=== PATIENT | male | born 1960 ===

== ENCOUNTER 2021-12-31 10:00 | Inpatient (IN) | payer OTHER ==
[~2021-12-31] VITALS: Ht 177.8 cm; Wt 80.9 kg
[2022-01-04] MEDS ORDERED: COLACE100 MG PO (07:33)
[2022-01-04] MEDS ORDERED: BACTRIM DS TAB1 EACH PO (07:34)
[2022-01-04] MEDS ORDERED: NEURONTIN800 MG PO (07:34)
[2022-01-04] MEDS ORDERED: PERCOCET 5-3251 EACH PO (07:34)
[2022-01-04] MEDS ORDERED: MEDROLPACK PO (07:34)
== END 2022-01-05 15:24 | disposition home or self-care (01) | DRG 455 ==
LOC: O/R 01-04 05:15 → PED 01-04 05:15 → SURH 01-04 07:00 → PED 01-04 11:29
PROVIDERS: ADMIT Orthopaedic Surgery Orthopaedic Surgery of the Spine; ATTEND Orthopaedic Surgery Orthopaedic Surgery of the Spine
PROC: 0SG0071 Fusion of Lumbar Vertebral Joint with Autologous Tissue Substitute, Posterior Approach, Posterior Column, Open Approach (ICD-10-PCS; 2022-01-04)
PROC: 0QB20ZZ Excision of Right Pelvic Bone, Open Approach (ICD-10-PCS; 2022-01-04)
PROC: 0SB20ZZ Excision of Lumbar Vertebral Disc, Open Approach (ICD-10-PCS; 2022-01-04)
PROC: 07DR0ZZ Extraction of Iliac Bone Marrow, Open Approach (ICD-10-PCS; 2022-01-04)
PROC: 0SG00A0 Fusion of Lumbar Vertebral Joint with Interbody Fusion Device, Anterior Approach, Anterior Column, Open Approach (ICD-10-PCS; principal; 2022-01-04 07:00)
DX: M48.062 Spinal stenosis, lumbar region with neurogenic claudication (principal); M41.56 Other secondary scoliosis, lumbar region; M51.36 Other intervertebral disc degeneration, lumbar region; M43.16 Spondylolisthesis, lumbar region